=== PATIENT | female | born 1935 | race Caucasian/White ===

== ENCOUNTER 2023-01-22 16:19 | Emergency (ER) | payer MEDICARE, OTHER ==
[~2023-01-22] VITALS: Ht 172.7 cm; Wt 70.0 kg
[~2023-01-22 16:19] MED LIST: ESOM20CA PO
[2023-01-22 16:36] VITALS: BP 122/78
[2023-01-22] MEDS ORDERED: LIDOcaine 5% patch TP STA (17:14)
[2023-01-22] MEDS ORDERED: traMADol 50MG tablet PO ONE (17:15)
[2023-01-22] MEDS ORDERED: TRAM50TA2 PO (17:21)
[2023-01-22] MEDS ORDERED: LIDO-15 TOP (17:21)
== END 2023-01-22 17:38 | disposition home or self-care (01) ==
LOC: ER 16:19
DX: S39.012A Strain of muscle, fascia and tendon of lower back, initial encounter (principal); Z79.899 Other long term (current) drug therapy; X58.XXXA Exposure to other specified factors, initial encounter; Y93.89 Activity, other specified; Y92.89 Other specified places as the place of occurrence of the external cause; Y99.8 Other external cause status
CPT/HCPCS: 99283